=== PATIENT | male | born 1990 | race African-American/Black ===

== ENCOUNTER 2025-01-26 10:09 | Emergency (ER) | payer SELFPAY ==
[~2025-01-26] VITALS: Ht 190.5 cm; Wt 86.0 kg
[2025-01-26 10:21] VITALS: O2SAT 100
[2025-01-26 12:18] LABS: BASOPHILS % 0.2 % (0.0-2.0); EOSINOPHILS % 0.6 % (0.0-5.0); HEMATOCRIT. 39.8 % (42.0-52.0); HEMOGLOBIN. 14.2 g/dL (14.0-18.0); LYMPHOCYTES % 7.5 % (20.0-50.0); MEAN CORPUSCULAR HEMOGLOBIN 32.1 pg (28.0-32.0); MEAN CORPUSCULAR HGB CONC 35.7 g/dL (31.0-37.0); MEAN CORPUSCULAR VOLUME 89.9 fL (80.0-94.0); MEAN PLATELET VOLUME 9.6 fl (7.4-10.4); MONOCYTES % 6.4 % (2.0-8.0); NEUTROPHILS % 85.3 % (40.0-76.0); PLATELET 128 x1000/uL (130-400); RED BLOOD CELL COUNT 4.43 mill/uL (4.7-6.1); RED CELL DISTRIBUTION WIDTH 12.8 % (11.6-14.6); WHITE BLOOD COUNT 7.5 x1000/uL (4.5-11.0)
[2025-01-26 12:26] LABS: CHLORIDE 99 mEq/L (98-107); POTASSIUM 3.7 mEq/L (3.5-5.1); SODIUM 134 mEq/L (136-145)
[2025-01-26 12:27] LABS: CALCIUM 10.1 mg/dL (8.7-10.4); CARBON DIOXIDE 26 mEq/L (21-32)
[2025-01-26 12:32] LABS: CREATININE 0.9 mg/dL (0.6-1.3); GLUCOSE 145 mg/dL (70-105); UREA NITROGEN BLOOD 11 mg/dL (9-23)
[2025-01-26] MEDS: ACETAMINOPHEN 325MG TABLET PO ONE (13:21)
[2025-01-26] MEDS: KETOROLAC 30MG/ML VIAL IM ONE (13:21)
[2025-01-26 13:23] LABS: INR 1.1
[2025-01-26 13:33] LABS: ALANINE AMINOTRANSFERASE 118 IU/L (10-49); ALBUMIN 4.6 g/dL (3.2-4.8); ASPARTATE AMINOTRANSFERASE 49 IU/L (<34); BILIRUBIN DIRECT 2.6 mg/dL (<=3.0); BILIRUBIN TOTAL 4.3 mg/dL (0.1-1.0)
[2025-01-26] MEDS: LIDOCAINE 5% PATCH TOP SCH (13:34)
[2025-01-26] MEDS: CYCLOBENZAPRINE 10MG TABLET PO ONE (13:41)
[2025-01-26 13:59] LABS: CLARITY URINE CLEAR (CLEAR); COLOR URINE ORANGE (YELLOW); GLUCOSE URINE NEGATIVE (NEGATIVE); KETONES URINE 2+ (NEGATIVE); LEUKOCYTE ESTERASE URINE 1+ (NEGATIVE); NITRITE URINE POSITIVE (NEGATIVE); OCCULT BLOOD URINE NEGATIVE (NEGATIVE); PROTEIN URINE 1+ (NEGATIVE); SPECIFIC GRAVITY URINE 1.026 (1.005-1.030)
[2025-01-26 14:21] LABS: BACTERIA URINE NONE SEEN; RBC URINE 0-2 /hpf (0-2); SQUAMOUS EPITHELIAL CELL URINE RARE /lpf (RARE/1+); WBC URINE 0-2 /hpf (0-2); YEAST URINE NONE SEEN
[2025-01-26] MEDS ORDERED: KETO10TA2 MT (15:08)
[2025-01-26] MEDS ORDERED: LIDO-53 TP (15:08)
[2025-01-26] MEDS ORDERED: CYCL10TA21 MT (15:08)
[2025-01-26 15:39] VITALS: BP 122/77; PULSE 110; RESP 17; TEMP 39.1; O2SAT 100
== END 2025-01-26 15:41 | disposition home or self-care (01) ==
LOC: ER 10:09
DX: M54.50 Low back pain, unspecified (principal); F12.90 Cannabis use, unspecified, uncomplicated; G44.209 Tension-type headache, unspecified, not intractable; F17.200 Nicotine dependence, unspecified, uncomplicated
CPT/HCPCS: 80076; 80048; 81003; 85025; 85610; 36415; 72100; 96372; 99284; J1885; Z7610 ×2